=== PATIENT | male | born 1980 | race Caucasian/White ===

== ENCOUNTER 2017-08-04 09:19 | Emergency (ER) | payer OTHER ==
[2017-08-04 09:35] VITALS: BP 115/69
--- NOTE | 2017-08-04 10:01 | UC ---
Skin Complaint HPI - HPI Summary HPI Summary: lesion right leg x 2 weeks the area was red swollen , tender, had drainage it is getting better concern abut tick bites but never saw the tick no fever, no chills, no joint pain or rash - History of Current Complaint Chief Complaint: [facility] Time Seen by Provider: 08/04/17 09:49 Stated Complaint: TICK BITE Hx Obtained From: Patient Onset/Duration: Gradual Onset, Lasting Weeks - 2, Resolved Timing: Constant Onset Severity: Moderate Current Severity: Moderate Location: Other - right leg Character: Swelling, Pain, Redness, Raised, Painful Aggravating Factor(s): Touch Alleviating Factor(s): Nothing Associated Signs & Symptoms: Positive: Negative. Negative: Weakness, Fever, Chills - Allergy/Home Medications Allergies/Adverse Reactions: Allergies Allergy/AdvReac Type Severity Reaction Status Date / Time Penicillins Allergy Unknown Verified 08/04/17 09:30 Reaction Details Home Medications: Home Medications NK [No Home Medications Reported] 08/04/17 [History Confirmed 08/04/17] Review of Systems Constitutional: Negative Skin: Negative Eyes: Negative ENT: Negative Respiratory: Negative Cardiovascular: Negative Is Patient Immunocompromised?: No All Other Systems Reviewed And Are Negative: Yes PMH/Surg Hx/FS Hx/Imm Hx Previously Healthy: Yes - Surgical History Surgical History: Yes Surgery Procedure, Year, and Place: Right Femur Fracture with [place] Placement, 2013 - Family History Known Family History: Positive: None Negative: Diabetes - Social History Alcohol Use: Daily Alcohol Amount: 2-3 beers daily Substance Use Type: Cocaine Substance Use Comment - Amount & Last Used: monthly Smoking Status (MU): Heavy Every Day Tobacco Smoker Type: Cigarettes Amount Used/How Often: 1 PPD Length of Time of Smoking/Using Tobacco: Since Age 16 - Immunization History Most Recent Influenza Vaccination: Not the 2017/2017 Season Most Recent Tetanus Shot: ~2011 Physical Exam Triage Information Reviewed: Yes Appearance: Well-Appearing, No Pain Distress, Well-Nourished Vital Signs: Initial Vital Signs Temp 98 F 08/04/17 09:27 Pulse 98 08/04/17 09:27 Resp 16 08/04/17 09:27 BP 115/69 08/04/17 09:27 Pulse Ox 98 08/04/17 09:27 Vital Signs Reviewed: Yes Eyes: Positive: Conjunctiva Clear ENT: Positive: Normal ENT inspection, Hearing grossly normal, Pharynx normal Neck: Positive: Supple, Nontender, No Lymphadenopathy Respiratory: Positive: Chest non-tender, Lungs clear, Normal breath sounds Cardiovascular: Positive: RRR, No Murmur, Pulses Normal Skin: Positive: Other - dry scaly lesion righ leg , healing abscess , no erythema, no tenderness, no swelling , no dischage Course/Dx - Diagnoses Provider Diagnoses: abscess right leg Discharge - Discharge Plan Condition: Stable Disposition: HOME Patient Education Materials: Abscess (ED) Referrals: Non Staff,Doctor [Primary Care Provider] - If Needed Additional Instructions: from the pt's history , looks like you had a boil in your leg and now it is healing and not a tick bite please follow up if having fever, chills, joint pain , target rash
== END 2017-08-04 09:55 | disposition home or self-care (01) ==
LOC: UCCORT 09:19
DX: S80.861A Insect bite (nonvenomous), right lower leg, initial encounter (principal); W57.XXXA Bitten or stung by nonvenomous insect and other nonvenomous arthropods, initial encounter
CPT/HCPCS: 99211; G0463